=== PATIENT | female | born 1975 | race Asian ===

== ENCOUNTER 2018-09-11 11:15 | Observation (INO) | payer OTHER ==
[2018-09-11] MEDS ORDERED: CEFAZOLIN 2 GM IVPB PREMIX 50 ML IV ONE (12:12)
[2018-09-11] MEDS ORDERED: AMPICILLIN SODIUM 2 GM VIAL ONE (23:31)
== END 2018-09-11 12:25 | disposition home or self-care (01) ==
LOC: SPU 11:15
PROVIDERS: ADMIT Obstetrics & Gynecology; ATTEND Obstetrics & Gynecology
DX: O26.853 Spotting complicating pregnancy, third trimester (principal); O48.0 Post-term pregnancy; Z3A.40 40 weeks gestation of pregnancy
CPT/HCPCS: G0378; J0290; J0690

== ENCOUNTER 2018-09-11 20:25 | Inpatient (IN) | payer OTHER ==
[~2018-09-11] VITALS: Ht 147.3 cm; Wt 61.2 kg
[2018-09-11] MEDS ORDERED: OXYTOCIN/0.9 % SODIUM CHLORIDE 1,000 ML IV SCH (22:15)
[2018-09-11] MEDS ORDERED: NALBUPHINE HCL 10 MG/ML AMP IVP PRN (22:15)
[2018-09-11] MEDS ORDERED: LR 1,000 ML IV ONE (22:15)
[2018-09-11] MEDS: LR 1,000 ML IV SCH (22:30)
[2018-09-11 22:40] LABS: BASOPHILS % (AUTO) 0.3 % (0.0-2.0); EOSINOPHILS % (AUTO) 0.4 % (0.0-4.0); HEMATOCRIT 38.9 % (36-48); HEMOGLOBIN 12.8 g/dL (12.0-16.0); LYMPHOCYTES # (AUTO) 1.3 K/uL (1.0-5.5); LYMPHOCYTES % (AUTO) 20.2 % (20.5-51.5); MEAN CORPUSCULAR HEMOGLOBIN 32 pg (27-31); MEAN CORPUSCULAR HGB CONC 33 % (32-36); MEAN CORPUSCULAR VOLUME 98 fL (79.0-98.0); MONOCYTES # (AUTO) 0.4 K/uL (0.0-1.0); MONOCYTES % (AUTO) 6.5 % (1.7-9.3); NEUTROPHILS # (AUTO) 4.8 K/uL (1.8-7.7); NEUTROPHILS % (AUTO) 72.6 % (40.0-70.0); PLATELET COUNT (AUTO) 181 K/uL (130-430); WHITE BLOOD COUNT (AUTO) 6.4 K/uL (4.8-10.8)
[2018-09-11] MEDS ORDERED: AMPICILLIN SODIUM 2 GM in NS 100 ML IV ONE (23:00)
[2018-09-11 23:51] VITALS: BP_SYST 112
[2018-09-12] MEDS ORDERED: fentaNYL CITRATE/PF 100 MCG/2 ML AMP ONE (02:40)
[2018-09-12] MEDS ORDERED: ROPIVACAINE 0.2% 100 ML ONE (02:40)
[2018-09-12] MEDS ORDERED: AMPICILLIN SODIUM 1 GM VIAL ONE (02:41)
[2018-09-12] MEDS ORDERED: AMPICILLIN SODIUM 1 GM in NS 50 ML IV SCH (03:00)
[2018-09-12] MEDS: LR 1,000 ML IV SCH (03:56)
[2018-09-12] MEDS ORDERED: OXYTOCIN/0.9 % SODIUM CHLORIDE 1,000 ML IV SCH (07:31)
[2018-09-12] MEDS ORDERED: OXYTOCIN/0.9 % SODIUM CHLORIDE 1,000 ML IV ONE (07:31)
[2018-09-12] MEDS ORDERED: LANOLIN 7 GM OINT. TP PRN (07:45)
[2018-09-12] MEDS ORDERED: ANUSOL 1 EA SUPP.RECT (PREPARATION H) RC PRN (07:45)
[2018-09-12] MEDS ORDERED: HYDROCORTISONE 0.5%, 28.35 GM TOPICAL CREAM TP PRN (07:45)
[2018-09-12] MEDS ORDERED: SENNOSIDES/DOCUSATE SODIUM 1 TAB TABLET(SENOKOT-S) PO PRN (07:45)
[2018-09-12] MEDS ORDERED: DIPH-TET-PERTUS Vaccine 0.5 ML VIAL (ADACEL) I.M. PRN (07:45)
[2018-09-12] MEDS ORDERED: RHO(D) IMMUNE GLOBULIN/MALTOSE 1500 UNITS/1.3 ML (WINHRO) IM PRN (07:45)
[2018-09-12] MEDS ORDERED: WITCH HAZEL LEAF 1 MED.PAD MED.PAD TP PRN (07:45)
[2018-09-12] MEDS ORDERED: MEASLES,MUMPS&RUBELLA VACC/PF 12500 UNIT/0.5 ML VIAL SUBQ PRN (07:45)
[2018-09-12] MEDS ORDERED: DERMOPLAST SPRAY TP PRN (07:45)
[2018-09-12] MEDS ORDERED: METHYLERGONOVINE MALEATE 0.2 MG TABLET PO PRN (07:45)
[2018-09-12] MEDS ORDERED: DOCUSATE SODIUM 100 MG CAPSULE PO PRN (07:45)
[2018-09-12] MEDS ORDERED: LR 500 ML IV ONE (08:02)
[2018-09-12] MEDS ORDERED: FENT2mCg/mL-ROPIVA0.2%/NS EPID 150 ML EP SCH (08:15)
[2018-09-12] MEDS: IBUPROFEN 600 MG TABLET PO SCH ×2 (12:21→17:54)
[2018-09-12] MEDS ORDERED: TEMAZEPAM 15 MG CAPSULE PO PRN (21:00)
[2018-09-13] MEDS: IBUPROFEN 600 MG TABLET PO SCH ×2 (00:12→05:55)
[2018-09-13 07:04] LABS: HEMOGLOBIN 11.4 g/dL (12.0-16.0)
[2018-09-13 07:05] LABS: HEMATOCRIT 32.7 % (36-48)
== END 2018-09-13 13:40 | disposition home or self-care (01) | DRG 560 ==
LOC: SPU 20:25 → OBSVTOIN 21:45 → SPU 09-12 09:00
PROVIDERS: ADMIT Obstetrics & Gynecology; ATTEND Obstetrics & Gynecology
PROC: 10E0XZZ Delivery of Products of Conception, External Approach (ICD-10-PCS; principal; 2018-09-12)
PROC: 0HQ9XZZ Repair Perineum Skin, External Approach (ICD-10-PCS; 2018-09-12)
DX: O99.824 Streptococcus B carrier state complicating childbirth (principal); Z37.0 Single live birth; Z3A.39 39 weeks gestation of pregnancy; O70.0 First degree perineal laceration during delivery
CPT/HCPCS: 36415; 85018-TC; 85025; 86592; 86886; 86900; 86901; G0378; J0290; J2590; J2795; J3010